=== PATIENT | male | born 1990 | race Caucasian/White ===

== ENCOUNTER 2016-10-27 03:07 | Emergency (ER) | payer OTHER ==
[2016-10-27 03:19] VITALS: O2SAT 93
[2016-10-27 04:00] LABS: BLOOD UREA NITROGEN 10 mg/dl (7-18); BUN/CREATININE RATIO 11.8 (10-20); CARBON DIOXIDE 27 mmol/L (21-32); CHLORIDE 106 mmol/L (98-107); CREATININE 0.84 mg/dl (0.60-1.40); GLUCOSE 166 mg/dl (70-99); POTASSIUM 3.1 mmol/L (3.5-5.1); SODIUM 140 mmol/L (136-145)
--- NOTE | 2016-10-27 05:10 | EMERGENCY ROOM VISIT NOTE ---
History Report prepared by Carlosibaniceto: Lew Jimenez Under the Supervision of: Dr. Myrna Troy D.O. First contact with patient: 03:09 Chief Complaint: ALCOHOL OVERDOSE Stated Complaint: ALCOHOL History of Present Illness The patient is a 26 year old male who presents to the Emergency Room for evaluation of constant alcohol intoxication beginning shortly prior to arrival. Per EMS, the patient was found leaning on a pole in a back alley outside of the [facility]. They state that the patient was vomiting on scene. The patient' s friends denied any falls or trauma. They state that the patient was taking drinks from strangers at the bars tonight, and they state that they saw the patient consume about five drinks. HPI limited secondary to alcohol intoxication. Source of History: patient History Limited By: intoxication (alcohol) Onset: Shortly prior to arrival Quality: other (alcohol intoxication) Timing: constant Associated Symptoms: + vomiting Review of Systems ROS limited secondary to alcohol intoxication. Past Medical & Surgical Medical Problems: (1) No pertinent past medical history Family History Unobtainable secondary to alcohol intoxication. Social History Alcohol Use: occasionally Marital Status: single Occupation Status: [employer] student Unobtainable secondary to alcohol intoxication. Current/Historical Medications Unable to Obtain Active Prescriptions or Reported Meds Physical Exam Vital Signs Date Time Temp Pulse Resp B/P (MAP) Pulse Ox O2 Delivery O2 Flow Rate FiO2 10/27/16 06:00 78 16 113/56 100 Nasal Cannula 3.0 10/27/16 05:00 97 16 112/67 100 Room Air 4.0 10/27/16 04:18 93 16 137/73 97 Nasal Cannula 4.0 10/27/16 03:29 99 10/27/16 03:19 93 Nasal Cannula 4.0 10/27/16 03:18 87 Room Air 10/27/16 03:13 98 Room Air 10/27/16 03:13 35.4 91 18 129/92 98 Room Air Physical Exam General: Smells of alcohol. Semi-responsive. Actively vomiting. HEENT: Head - normocephalic and atraumatic Pupils are 6 mm and sluggishly reactive to light. They are equal and round. Extraocular eye muscles are intact, and sclera are anicteric. Nose - moist nasal mucosa without discharge. Mouth - moist buccal mucosa. Oropharynx is nonerythematous and there is no tonsillar exudate or edema noted. Neck: Supple; no JVD, nuchal rigidity, cervical lymphadenopathy. Heart: Tachycardic rate with a regular rhythm. There is a normal S1 and S2 with no murmurs, clicks, or gallops appreciated. Lungs: Clear to auscultation bilaterally with no wheezes, rales, or rhonchi. Abdomen: Soft, completely nontender, nondistended, with good bowel sounds. There are no palpable pulsatile masses or hepatosplenomegaly. There is no guarding, rigidity, or rebound noted. Extremities: No evidence of cyanosis, clubbing, or edema. There are easily palpable peripheral pulses. Skin: warm and dry with good turgor and no rashes. Medical Decision & Procedures Laboratory Results 10/27/16 03:31 Test 10/27/16 03:31 Anion Gap 7.0 mmol/L (3-11) Estimated GFR () 139.1 Estimated GFR (Non- 120.0 BUN/Creatinine Ratio 11.8 (10-20) Calcium Level 8.0 mg/dl (8.5-10.1) Ethyl Alcohol mg/dL 183.0 mg/dl (0-3) Laboratory results per my review. ED Course 0310: Past medical records reviewed. The patient was evaluated in room B11A. A complete history and physical exam was performed. Labs were drawn as above. The patient was placed in the prone position to avoid aspiration. He was observed on the slat basket maker and pulse oximeter. 0500: I reassessed the patient. He is fast asleep, and his vitals appear stable. 0615: I checked in on the patient. He is resting. I discussed the dangers of excessive alcohol use with him. The patient denies any trauma last night. He denies any known health history. The patient is fully awake this time and will be discharged shortly Medical Decision The patient is a 26 year old male who presents to the ED with alcohol intoxication. Differential diagnosis includes alcohol overdose, drug intoxication, head injury, hypoglycemia, as well as other etiologies were considered. Laboratory Studies: Alcohol 183. Potassium 3.1. Normal renal function. Glucose 166. The patient was brought to the emergency department after consuming too much alcohol and vomiting. He was observed here while he sobered up. The patient was noted to have a low potassium was encouraged to take foods high in potassium. His glucose was moderately elevated and will need to have follow-up with the [facility] for a fasting blood sugar. The patient was encouraged to avoid such excessive alcohol use in the future. Medication Reconcilliation Current Medication List: was personally reviewed by me Blood Pressure Screening Patient's blood pressure: Elevated blood pressure Blood pressure disposition: Elevated BP felt to be situational Impression Primary Impression: Alcohol overdose Additional Impressions: Hyperglycemia Hypokalemia Scribe Attestation The scribe's documentation has been prepared under my direction and personally reviewed by me in its entirety. I confirm that the note above accurately reflects all work, treatment, procedures, and medical decision making performed by me. Departure Information Dispostion Home / Self-Care Prescriptions Unable to Obtain Active Prescriptions or Reported Meds Forms HOME CARE DOCUMENTATION FORM, IMPORTANT VISIT INFORMATION Patient Instructions ED Overdose Alcohol, Hyperglycemia, Hypokalemia Efrain, [facility] Additional Instructions Rest Take plenty of clear liquids Take a bland diet. Take foods high in potassium Follow up with PCP for a fasting blood sugar recheck Problem Qualifiers Primary Impression: Alcohol overdose Encounter type: initial encounter Injury intent: accidental or unintentional Qualified Codes: T51.91XA - Toxic effect of unspecified alcohol , accidental (unintentional), initial encounter
[2016-10-27 06:52] VITALS: TEMP 36.6
[2016-10-27] MEDS ORDERED: ONDANSETRON 4MG OD TAB ONE (07:13)
[2016-10-27 07:19] VITALS: BP 146/85; PULSE 92; O2SAT 95
== END 2016-10-27 07:33 | disposition home or self-care (01) ==
LOC: EDBD 03:07 → C.EDB 03:09
DX: T51.0X1A Toxic effect of ethanol, accidental (unintentional), initial encounter (principal); F10.120 Alcohol abuse with intoxication, uncomplicated; Y90.6 Blood alcohol level of 120-199 mg/100 ml; R73.9 Hyperglycemia, unspecified; E87.6 Hypokalemia